=== PATIENT | male | born 1980 | race Caucasian/White ===

== ENCOUNTER 2021-07-06 19:06 | Emergency (ER) | payer SELFPAY ==
[~2021-07-06] VITALS: Ht 187.9 cm; Wt 113.4 kg
[2021-07-06] MEDS ORDERED: HYDROcodone/APAP 7.5 MG/325 MG (LORTAB, LORCET PLUS) TABLET PO STA (20:11)
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
[2021-07-06 21:06] VITALS: BP 136/89
--- OUTSIDE RECORDS SUMMARY | 2021-07-07 02:36 | XMS REPORT ---
Author Author Stanley Cha [facility] Address [address] [place], [place] [id number] Care Team Providers [employer] Consultant Name Role Phone Alice Cha PCP Allergies and Adverse Reactions Name Reaction Notes No known history of drug allergy Plan of Treatment Not available. Medications Active Name Start Date Estimated Completion Date SIG Co mments Bactrim DS 800 mg-160 mg tablet 06/07/2021 06/17/2021 take 1 tablet by oral route every 12 hours for 10 days mupirocin 2 % topical ointment 06/07/2021 06/12/2021 a pply a small amount to the affected area by topical route 3 times per day for 5 days Problem List Not available. Vital Signs Date Time BP-Sys(mm[Hg] BP-Penny(mm[Hg]) HR(bpm) RR(rpm) Temp WT HT HC BMI BSA BMI Percentile O2 Sat(%) 03/26/2015 2:19:00 PM 126 mm[Hg] 90 mm[Hg] 90 {beats}/min 16 rpm Social History Name Description Comments Tobacco Current every day smoker Alcohol Current some day History of Procedures Date Ordered Description Order Status 03/30/2015 12:00 AM BIOPSY SKIN LESION Reviewed 03/30/2015 12:00 AM DESTRUCT B9 LESION 1-14 Reviewed Results Summary Not available. History Of Immunizations Not available. History of Past Illness Name Date of Onset Comments NO SIGNIFICANT MEDICAL HX GIVEN Skin lesion of back Mar 26 2015 2:19PM Genital warts Mar 26 2015 2:19PM Neoplasm Of Uncertain Behavior Of Skin Mar 30 2015 9:08AM Genital warts Mar 30 2015 9:08AM Infection of skin Jun 07 2021 2:41PM Payers Insurance Name Company Name Plan Name Plan Number Policy Number [place] [facility] [place] [facility] [id number] March History of Encounters Visit Date Visit Type Provider 06/07/2021 Office visit Alice NATHAN RN 03/26/2015 Office visit Khoi Evans APR N
== END 2021-07-06 21:06 | disposition home or self-care (01) ==
LOC: ER 19:12
DX: G89.18 Other acute postprocedural pain (principal)
CPT/HCPCS: 99283

== ENCOUNTER 2021-08-13 14:10 | Emergency (ER) | payer SELFPAY ==
[~2021-08-13] VITALS: Ht 193 cm; Wt 122.0 kg
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
[2021-08-13] MEDS ORDERED: meTOprolol TARTRATE 25 MG (LOPRESSOR) TABLET ONE (14:25)
[2021-08-13] MEDS ORDERED: cefTRIAXone 1,000 MG VIAL IM ONE (14:30)
[2021-08-13] MEDS ORDERED: meTOprolol TARTRATE 25 MG (LOPRESSOR) TABLET PO ONE (14:30)
[2021-08-13] MEDS ORDERED: LIDOCAINE 1% INJ 20 ML 20 ML VIAL INJ ONE (14:30)
[2021-08-13] MEDS ORDERED: KETOROLAC 60 MG/2 ML VIAL IM ONE (14:30)
[2021-08-13 14:34] LABS: BASOPHILS % (AUTO) 0 % (0-10); EOSINOPHILS # (AUTO) 0.2 10^3/uL (0.0-0.3); EOSINOPHILS % (AUTO) 3 % (0-10); HEMATOCRIT 41 % (40-54); HEMOGLOBIN 13.3 g/dL (13.3-17.7); LYMPHOCYTES # (AUTO) 1.3 10^3/uL (1.0-4.0); LYMPHOCYTES % (AUTO) 19 % (12-44); MEAN CORPUSCULAR HEMOGLOBIN 29 pg (25-34); MEAN CORPUSCULAR HGB CONC 32 g/dL (32-36); MEAN CORPUSCULAR VOLUME 90 fL (80-99); MEAN PLATELET VOLUME 11.9 fL (9.0-12.2); MONOCYTES # (AUTO) 0.4 10^3/uL (0.0-1.0); MONOCYTES % (AUTO) 6 % (0-12); NEUTROPHILS # (AUTO) 4.8 10^3/uL (1.8-7.8); NEUTROPHILS % (AUTO) 72 % (42-75); PLATELET COUNT 226 10^3/uL (130-400); WHITE BLOOD COUNT 6.7 10^3/uL (4.3-11.0)
[2021-08-13 14:56] LABS: POTASSIUM 3.8 MMOL/L (3.6-5.0)
[2021-08-13 14:58] LABS: CALCIUM 9.1 MG/DL (8.5-10.1)
[2021-08-13 15:02] LABS: CREATININE SERUM 1.14 MG/DL (0.60-1.30)
[2021-08-13] MEDS ORDERED: SULF1TAB38 PO (15:14)
[2021-08-13] MEDS ORDERED: NAPR-1071 PO (15:14)
[2021-08-13] MEDS ORDERED: MUPI22OI2 TP (15:14)
[2021-08-13 15:42] VITALS: BP 158/102
== END 2021-08-13 15:42 | disposition home or self-care (01) ==
LOC: EDUNIT# 14:10 → ER 14:12
DX: M79.89 Other specified soft tissue disorders (principal)
CPT/HCPCS: 36415; 80048; 85025; 87070; 87077; 87186; 87205

== ENCOUNTER 2021-08-31 11:47 | Emergency (ER) | payer SELFPAY ==
[~2021-08-31] VITALS: Ht 193 cm; Wt 122.5 kg
[~2021-08-31 11:47] MED LIST: MUPI22OI2 TP; NAPR-1071 PO; SULF1TAB38 PO
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
[2021-08-31 12:28] LABS: BASOPHILS % (AUTO) 0 % (0-10); EOSINOPHILS # (AUTO) 0.3 10^3/uL (0.0-0.3); EOSINOPHILS % (AUTO) 5 % (0-10); HEMATOCRIT 37 % (40-54); HEMOGLOBIN 12.3 g/dL (13.3-17.7); LYMPHOCYTES # (AUTO) 1.5 10^3/uL (1.0-4.0); LYMPHOCYTES % (AUTO) 25 % (12-44); MEAN CORPUSCULAR HEMOGLOBIN 30 pg (25-34); MEAN CORPUSCULAR HGB CONC 33 g/dL (32-36); MEAN CORPUSCULAR VOLUME 90 fL (80-99); MEAN PLATELET VOLUME 12.2 fL (9.0-12.2); MONOCYTES # (AUTO) 0.4 10^3/uL (0.0-1.0); MONOCYTES % (AUTO) 7 % (0-12); NEUTROPHILS # (AUTO) 3.6 10^3/uL (1.8-7.8); NEUTROPHILS % (AUTO) 62 % (42-75); PLATELET COUNT 207 10^3/uL (130-400); WHITE BLOOD COUNT 5.9 10^3/uL (4.3-11.0)
[2021-08-31 12:37] LABS: POTASSIUM 3.8 MMOL/L (3.6-5.0)
[2021-08-31 12:43] LABS: CREATININE SERUM 1.02 MG/DL (0.60-1.30)
[2021-08-31] MEDS ORDERED: SULF1TAB38 PO (13:11)
[2021-08-31] MEDS ORDERED: ACHD5005 PO (13:11)
[2021-08-31] MEDS ORDERED: MUPI15CR11 TP ×2 (13:11→13:14)
[2021-08-31 13:24] VITALS: BP 148/89
== END 2021-08-31 13:24 | disposition home or self-care (01) ==
LOC: EDUNIT# 11:47 → ER 11:48
DX: S81.801A Unspecified open wound, right lower leg, initial encounter (principal); S81.802A Unspecified open wound, left lower leg, initial encounter; R73.9 Hyperglycemia, unspecified; I10 Essential (primary) hypertension; T46.4X6A Underdosing of angiotensin-converting-enzyme inhibitors, initial encounter; F17.210 Nicotine dependence, cigarettes, uncomplicated; Z91.14 Patient's other noncompliance with medication regimen; X99.9XXA Assault by unspecified sharp object, initial encounter
CPT/HCPCS: 36415; 80048; 85025; 86141

== ENCOUNTER 2022-07-05 21:27 | Emergency (ER) | payer OTHER ==
[~2022-07-05] VITALS: Ht 193 cm; Wt 134.3 kg
[~2022-07-05 21:27] MED LIST changes: +ACHD5005 PO; +MUPI15CR11 TP
[2022-07-05] MEDS ORDERED: DOXYCYCLINE 100 MG (VIBRAMYCIN) TABLET PO STA (22:26)
[2022-07-05] MEDS ORDERED: CEPHALEXIN 250 MG (KEFLEX) CAP PO STA (22:28)
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
[2022-07-05 22:40] LABS: BASOPHILS % (AUTO) 0 % (0-10); EOSINOPHILS # (AUTO) 0.5 10^3/uL (0.0-0.3); EOSINOPHILS % (AUTO) 6 % (0-10); HEMATOCRIT 30 % (40-54); HEMOGLOBIN 9.5 g/dL (13.3-17.7); LYMPHOCYTES # (AUTO) 1.6 10^3/uL (1.0-4.0); LYMPHOCYTES % (AUTO) 21 % (12-44); MEAN CORPUSCULAR HEMOGLOBIN 27 pg (25-34); MEAN CORPUSCULAR HGB CONC 32 g/dL (32-36); MEAN CORPUSCULAR VOLUME 84 fL (80-99); MEAN PLATELET VOLUME 10.9 fL (9.0-12.2); MONOCYTES # (AUTO) 0.6 10^3/uL (0.0-1.0); MONOCYTES % (AUTO) 8 % (0-12); NEUTROPHILS # (AUTO) 4.9 10^3/uL (1.8-7.8); NEUTROPHILS % (AUTO) 64 % (42-75); PLATELET COUNT 324 10^3/uL (130-400); WHITE BLOOD COUNT 7.6 10^3/uL (4.3-11.0)
[2022-07-05] MEDS ORDERED: DOXY100T31 PO (22:45)
[2022-07-05] MEDS ORDERED: CEPH500T PO (22:45)
[2022-07-05] MEDS ORDERED: ACHD5005 PO (22:49)
[2022-07-05] MEDS ORDERED: HYDROcodone/APAP 5 MG/325 MG (LORTAB) TAB PO ONE (23:00)
[2022-07-05 23:01] LABS: ALBUMIN 3.2 GM/DL (3.2-4.5); BILIRUBIN,TOTAL 0.2 MG/DL (0.1-1.0); CALCIUM 9.1 MG/DL (8.5-10.1); CREATININE SERUM 0.91 MG/DL (0.60-1.30); POTASSIUM 3.8 MMOL/L (3.6-5.0); TOTAL PROTEIN 6.9 GM/DL (6.4-8.2)
[2022-07-05 23:14] VITALS: BP 167/114
== END 2022-07-05 23:27 | disposition home or self-care (01) ==
LOC: EDUNIT# 21:27 → ER 21:28
DX: L97.929 Non-pressure chronic ulcer of unspecified part of left lower leg with unspecified severity (principal); S80.922A Unspecified superficial injury of left lower leg, initial encounter; F17.210 Nicotine dependence, cigarettes, uncomplicated; Z28.310 Unvaccinated for COVID-19; X58.XXXA Exposure to other specified factors, initial encounter
CPT/HCPCS: 36415; 80053; 85025; 86141; 87070; 87205

== ENCOUNTER → 2022-07-07 | Outpatient (CLI) | payer OTHER ==
[~2022-07-07] MED LIST changes: +CEPH500T PO; +DOXY100T31 PO
== END ==
LOC: WOUNDCARE 09:51
PROVIDERS: ATTEND Family Medicine
DX: L97.222 Non-pressure chronic ulcer of left calf with fat layer exposed (principal); L97.212 Non-pressure chronic ulcer of right calf with fat layer exposed; L98.492 Non-pressure chronic ulcer of skin of other sites with fat layer exposed; L98.1 Factitial dermatitis; F17.219 Nicotine dependence, cigarettes, with unspecified nicotine-induced disorders; E66.09 Other obesity due to excess calories; F15.10 Other stimulant abuse, uncomplicated; D64.9 Anemia, unspecified
CPT/HCPCS: 11042; 11045; 82607; 82728; 82746; 83540; 83550; A6197; G0463; 36415

== ENCOUNTER → 2022-07-13 | Outpatient (CLI) | payer OTHER ==
--- NOTE | 2022-07-13 16:29 | Diagnostic Imaging Report ---
INDICATION: Hypertension, tobaccoism Ankle-brachial index Ankle-brachial index right leg is 1.1 and on the left is 1.1. IMPRESSION: Normal bilateral ankle brachial indices Dictated by: Dictated on workstation # [id number]
== END ==
LOC: RAD 12:45
PROVIDERS: ATTEND Family Medicine
DX: L97.222 Non-pressure chronic ulcer of left calf with fat layer exposed (principal); L97.212 Non-pressure chronic ulcer of right calf with fat layer exposed; L98.492 Non-pressure chronic ulcer of skin of other sites with fat layer exposed; L98.1 Factitial dermatitis; E66.09 Other obesity due to excess calories; F15.10 Other stimulant abuse, uncomplicated; D46.4 Refractory anemia, unspecified; I10 Essential (primary) hypertension; F17.219 Nicotine dependence, cigarettes, with unspecified nicotine-induced disorders
CPT/HCPCS: 36415; 82607; 82728; 82746; 93923

== ENCOUNTER → 2022-07-14 | Outpatient (CLI) | payer OTHER | LOC: WOUNDCARE 12:21 | PROVIDERS: ATTEND Family Medicine | DX: I96 Gangrene, not elsewhere classified (principal); L97.212 Non-pressure chronic ulcer of right calf with fat layer exposed; L97.222 Non-pressure chronic ulcer of left calf with fat layer exposed; L98.1 Factitial dermatitis; E66.09 Other obesity due to excess calories; D46.4 Refractory anemia, unspecified; L97.512 Non-pressure chronic ulcer of other part of right foot with fat layer exposed; B95.62 Methicillin resistant Staphylococcus aureus infection as the cause of diseases classified elsewhere; B96.5 Pseudomonas (aeruginosa) (mallei) (pseudomallei) as the cause of diseases classified elsewhere; F17.219 Nicotine dependence, cigarettes, with unspecified nicotine-induced disorders; F15.10 Other stimulant abuse, uncomplicated; Z68.36 Body mass index [BMI] 36.0-36.9, adult | CPT/HCPCS: 11042; 11045; A6197; G0463 ==

== ENCOUNTER → 2022-07-29 | Outpatient (CLI) | payer OTHER ==
[2022-07-29 10:48] LABS: BASOPHILS % (AUTO) 0 % (0-10); EOSINOPHILS # (AUTO) 0.6 10^3/uL (0.0-0.3); EOSINOPHILS % (AUTO) 10 % (0-10); HEMATOCRIT 33 % (40-54); HEMOGLOBIN 10.3 g/dL (13.3-17.7); LYMPHOCYTES # (AUTO) 1.5 10^3/uL (1.0-4.0); LYMPHOCYTES % (AUTO) 25 % (12-44); MEAN CORPUSCULAR HEMOGLOBIN 26 pg (25-34); MEAN CORPUSCULAR HGB CONC 31 g/dL (32-36); MEAN CORPUSCULAR VOLUME 82 fL (80-99); MEAN PLATELET VOLUME 11.6 fL (9.0-12.2); MONOCYTES # (AUTO) 0.6 10^3/uL (0.0-1.0); MONOCYTES % (AUTO) 10 % (0-12); NEUTROPHILS # (AUTO) 3.1 10^3/uL (1.8-7.8); NEUTROPHILS % (AUTO) 54 % (42-75); PLATELET COUNT 229 10^3/uL (130-400); WHITE BLOOD COUNT 5.8 10^3/uL (4.3-11.0)
[2022-07-29 11:12] LABS: ERYTHROCYTE SEDIMENTATION RATE 47 MM/HR (0-15)
== END ==
LOC: WOUNDCARE 09:46
PROVIDERS: ATTEND Family Medicine
DX: L97.222 Non-pressure chronic ulcer of left calf with fat layer exposed (principal); L97.212 Non-pressure chronic ulcer of right calf with fat layer exposed; L98.1 Factitial dermatitis; E66.09 Other obesity due to excess calories; D46.4 Refractory anemia, unspecified; L97.512 Non-pressure chronic ulcer of other part of right foot with fat layer exposed; I96 Gangrene, not elsewhere classified; F15.10 Other stimulant abuse, uncomplicated; F17.219 Nicotine dependence, cigarettes, with unspecified nicotine-induced disorders
CPT/HCPCS: 11042; 11045; 85025; 85652; G0463; 36415

== ENCOUNTER → 2022-08-08 | Outpatient (CLI) | payer OTHER ==
[2022-08-08 15:56] LABS: AMPHETAMINE SCREEN, URINE POSITIVE (NEGATIVE); BARBITURATE SCREEN URINE NEGATIVE (NEGATIVE); BENZODIAZEPINES SCREEN URINE NEGATIVE (NEGATIVE); CANNABINOID SCREEN, URINE NEGATIVE (NEGATIVE); COCAINE SCREEN URINE POSITIVE (NEGATIVE); METHADONE STAT NEGATIVE (NEGATIVE); OPIATE SCREEN URINE NEGATIVE (NEGATIVE); OXYCODONE STAT NEGATIVE (NEGATIVE); PROPOXYPHENE STAT NEGATIVE (NEGATIVE); TRICYCLIC ANTIDEPRESSANTS SCRE NEGATIVE (NEGATIVE)
== END ==
LOC: WOUNDCARE 13:39
PROVIDERS: ATTEND Family Medicine
DX: I96 Gangrene, not elsewhere classified (principal); L97.212 Non-pressure chronic ulcer of right calf with fat layer exposed; L97.222 Non-pressure chronic ulcer of left calf with fat layer exposed; L98.1 Factitial dermatitis; F17.209 Nicotine dependence, unspecified, with unspecified nicotine-induced disorders; E66.09 Other obesity due to excess calories; F15.10 Other stimulant abuse, uncomplicated; L97.512 Non-pressure chronic ulcer of other part of right foot with fat layer exposed; L03.116 Cellulitis of left lower limb; Z68.36 Body mass index [BMI] 36.0-36.9, adult
CPT/HCPCS: 11042; 11045; 80306; 87070; 87205; A6197; G0463; 87077

== ENCOUNTER 2022-10-27 14:41 | Emergency (ER) | payer OTHER ==
[~2022-10-27] VITALS: Ht 193 cm; Wt 129.2 kg
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
[2022-10-27] MEDS ORDERED: NS IV 1000 ML 1,000 ML IV SCH ×2 (16:15→17:45)
[2022-10-27] MEDS ORDERED: inSUlin (REGULAR) HUMAN 1 UNIT/0.01 ML (CHARGE PER UNIT) SC ONE (16:15)
[2022-10-27 16:24] LABS: BASOPHILS % (AUTO) 0 % (0-10); MEAN CORPUSCULAR VOLUME 66 fL (80-99)
[2022-10-27 16:24] LABS: BILIRUBIN,URINE NEGATIVE (NEGATIVE); CLARITY,URINE CLEAR; COLOR,URINE YELLOW; GLUCOSE, URINE (UA) 3+ (NEGATIVE); KETONES,URINE NEGATIVE (NEGATIVE); LEUKOCYTE ESTERASE ,URINE NEGATIVE (NEGATIVE); NITRITE,URINE NEGATIVE (NEGATIVE); PH,URINE 5.5 (5-9); PROTEIN,URINE NEGATIVE (NEGATIVE)
[2022-10-27 16:26] LABS: EOSINOPHILS # (AUTO) 0.3 10^3/uL (0.0-0.3); EOSINOPHILS % (AUTO) 4 % (0-10); HEMATOCRIT 36 % (40-54); HEMOGLOBIN 10.6 g/dL (13.3-17.7); LYMPHOCYTES % (AUTO) 22 % (12-44); MEAN CORPUSCULAR HEMOGLOBIN 19 pg (25-34); MEAN CORPUSCULAR HGB CONC 29 g/dL (32-36); MONOCYTES # (AUTO) 0.8 10^3/uL (0.0-1.0); MONOCYTES % (AUTO) 9 % (0-12); NEUTROPHILS # (AUTO) 5.9 10^3/uL (1.8-7.8); NEUTROPHILS % (AUTO) 65 % (42-75); PLATELET COUNT 339 10^3/uL (130-400); WHITE BLOOD COUNT 9.1 10^3/uL (4.3-11.0)
[2022-10-27 16:39] LABS: BILIRUBIN,TOTAL 0.2 MG/DL (0.1-1.0); CREATININE SERUM 1.37 MG/DL (0.60-1.30); MAGNESIUM 2.2 MG/DL (1.6-2.4); POTASSIUM 4.5 MMOL/L (3.6-5.0); TOTAL PROTEIN 8.6 GM/DL (6.4-8.2)
[2022-10-27 16:45] LABS: BACTERIA,URINE NEGATIVE /HPF; SQUAMOUS EPITHELIAL CELL,UR RARE /HPF
[2022-10-27] MEDS ORDERED: METF-399 PO (18:25)
[2022-10-27] MEDS ORDERED: SULF1TAB38 PO (18:25)
[2022-10-27] MEDS ORDERED: MUPI22OI2 TP (18:25)
[2022-10-27] MEDS ORDERED: TRIM/SULFAMETH 160/800 (SEPTRA DS) TAB PO ONE (18:30)
[2022-10-27] MEDS ORDERED: metFORMIN 500 MG (GLUCOPHAGE) TAB PO ONE (18:30)
[2022-10-27 18:52] VITALS: BP 155/95
== END 2022-10-27 18:52 | disposition home or self-care (01) ==
LOC: EDUNIT# 14:41 → ER 14:43
DX: E11.65 Type 2 diabetes mellitus with hyperglycemia (principal); L98.499 Non-pressure chronic ulcer of skin of other sites with unspecified severity; Z87.891 Personal history of nicotine dependence; Z28.310 Unvaccinated for COVID-19
CPT/HCPCS: 36415; 80053; 81000; 82947; 83735; 85025; 86141